=== PATIENT | female | born 1995 | race Caucasian/White ===

== ENCOUNTER 2017-01-12 13:35 | Emergency (ER) | payer MEDICAID ==
[~2017-01-12] VITALS: Ht 177.8 cm; Wt 72.6 kg
[2017-01-12 13:49] VITALS: BP 130/76
== END 2017-01-12 22:22 | disposition left against medical advice (07) ==
LOC: ER 13:35
DX: M79.672 Pain in left foot (principal); Z53.21 Procedure and treatment not carried out due to patient leaving prior to being seen by health care provider
CPT/HCPCS: 73630

== ENCOUNTER 2017-09-23 08:05 | Emergency (ER) | payer MEDICAID, OTHER ==
[~2017-09-23] VITALS: Ht 172.7 cm; Wt 79.8 kg
[2017-09-23 08:18] VITALS: BP 139/84
[2017-09-23] MEDS ORDERED: cefTRIAXone SOD 1,000 MG VL IM ONE (09:45)
== END 2017-09-23 10:20 | disposition home or self-care (01) ==
LOC: ER 08:05
DX: J20.9 Acute bronchitis, unspecified (principal); J03.90 Acute tonsillitis, unspecified; N39.0 Urinary tract infection, site not specified
CPT/HCPCS: 71046; 81025; 87804; 96372; 99285; J0696